=== PATIENT | male | born 1980 | race Caucasian/White ===

== ENCOUNTER 2016-10-25 02:46 | Inpatient (IN) | payer BC, OTHER ==
[~2016-10-25] VITALS: Ht 175.3 cm; Wt 81.0 kg
[2016-10-25] VITALS (16 sets, daily range): BP systolic 102–115; BP diastolic 65–75
[2016-10-25 03:40] LABS: WHITE BLOOD COUNT 3.4 x10^3/uL (3.4-10)
[2016-10-25 03:42] LABS: HEMOGLOBIN 5.9 g/dL (13.7-18.0)
[2016-10-25 03:43] LABS: HEMATOCRIT 17.9 % (39.2-51.8)
[2016-10-25 03:47] LABS: BLOOD UREA NITROGEN 9 mg/dL (7-18)
[2016-10-25 03:52] LABS: IS PT STATUS REG ER OR PRE ER? YES
[2016-10-25] MEDS ORDERED: OMNIPAQUE 350 MG/ML, 100ML BOTTLE ONE (04:24)
[2016-10-25] MEDS ORDERED: ONDANSETRON ODT 4 MG PO PRN (05:30)
[2016-10-25] MEDS ORDERED: ACETAMINOPHEN 325 MG TABLET PO PRN (05:30)
[2016-10-25] MEDS ORDERED: TEMAZEPAM 15 MG CAPSULE PO PRN (05:30)
[2016-10-25] MEDS ORDERED: ONDANSETRON 2MG/ML, 2ML IVPush PRN (05:30)
[2016-10-25 09:22] LABS: FERRITIN 4.3 ng/mL (26-388)
[2016-10-25] MEDS: FAMOTIDINE 20 MG/2 ML IVPush SCH ×2 (09:34→21:28)
[2016-10-25 10:23] LABS: HEMOGLOBIN 6.4 g/dL (13.7-18.0)
[2016-10-25 11:11] LABS: HEMATOCRIT 20.3 % (39.2-51.8); HEMOGLOBIN 6.8 g/dL (13.7-18.0)
[2016-10-25 17:46] LABS: HEMATOCRIT 27.4 % (39.2-51.8)
[2016-10-25] MEDS: HYDROcodone/APAP 5/325 TABLET PO PRN (20:22)
[2016-10-25 22:27] LABS: HEMATOCRIT 27.3 % (39.2-51.8); HEMOGLOBIN 9.1 g/dL (13.7-18.0)
[2016-10-26 01:21] VITALS: BP 116/74
[2016-10-26 05:35] LABS: HEMATOCRIT 26.5 % (39.2-51.8); HEMOGLOBIN 8.9 g/dL (13.7-18.0); WHITE BLOOD COUNT 4.4 x10^3/uL (3.4-10)
[2016-10-26 05:43] LABS: ASPARTATE AMINO TRANSFERASE 13 U/L (15-37); BLOOD UREA NITROGEN 7 mg/dL (7-18)
[2016-10-26 06:29] VITALS: BP 102/63
[2016-10-26] MEDS: FAMOTIDINE 20 MG/2 ML IVPush SCH ×2 (09:28→21:07)
[2016-10-26] MEDS: HYDROcodone/APAP 5/325 TABLET PO PRN ×2 (12:47→23:53)
[2016-10-26 14:33] VITALS: BP 107/70
[2016-10-26] MEDS ORDERED: GOLYTELY 4,000ML ORAL.SOL PO ONE (17:00)
[2016-10-26 20:36] VITALS: BP 117/72
[2016-10-27 01:03] VITALS: BP 115/74
[2016-10-27 05:11] LABS: HEMATOCRIT 27.4 % (39.2-51.8)
[2016-10-27 08:15] VITALS: BP 107/64
[2016-10-27] MEDS: FAMOTIDINE 20 MG/2 ML IVPush SCH (08:39)
[2016-10-27] MEDS ORDERED: MIDAZOLAM 1 MG/ML, 2ML ONE (08:43)
[2016-10-27] MEDS ORDERED: FENTANYL PF 100 MCG/2ML ONE (08:43)
[2016-10-27] MEDS ORDERED: ONDANSETRON 2MG/ML, 2ML ONE ×2 (08:45→09:53)
[2016-10-27] MEDS ORDERED: PROPOFOL 10 MG/ML, 20ML ONE (08:45)
[2016-10-27] MEDS ORDERED: HYDROmorphone 1 MG/ML, 1ML IV PRN (10:00)
[2016-10-27] MEDS ORDERED: HYDROcodone/APAP 7.5-325MG/15ML UDC PO PRN (10:00)
[2016-10-27] MEDS ORDERED: OXYcodone 5 MG/5 ML ORAL.SOL UDC PO PRN (10:00)
[2016-10-27] MEDS ORDERED: FENTANYL PF 100 MCG/2ML IV PRN (10:00)
[2016-10-27] MEDS ORDERED: PANT40TA3 PO (11:25)
[2016-10-27] MEDS ORDERED: PHEN1SUP77 PR (11:36)
[2016-10-27 15:38] VITALS: BP 104/58
== END 2016-10-27 16:49 | disposition home or self-care (01) | DRG 378 ==
LOC: ED 03:29 → EDIP 05:04 → 4NOR 06:00 → 4EST 10:16
PROVIDERS: ADMIT Internal Medicine; ATTEND Internal Medicine
PROC: 30233N1 Transfusion of Nonautologous Red Blood Cells into Peripheral Vein, Percutaneous Approach (ICD-10-PCS; principal; 2016-10-25)
PROC: 0DJD8ZZ Inspection of Lower Intestinal Tract, Via Natural or Artificial Opening Endoscopic (ICD-10-PCS; 2016-10-27)
PROC: 0DBB8ZX Excision of Ileum, Via Natural or Artificial Opening Endoscopic, Diagnostic (ICD-10-PCS; 2016-10-27)
PROC: 0DBE8ZX Excision of Large Intestine, Via Natural or Artificial Opening Endoscopic, Diagnostic (ICD-10-PCS; 2016-10-27)
DX: K92.2 Gastrointestinal hemorrhage, unspecified (principal); D62 Acute posthemorrhagic anemia; R13.10 Dysphagia, unspecified; G89.29 Other chronic pain; K20.0 Eosinophilic esophagitis; K52.9 Noninfective gastroenteritis and colitis, unspecified; K64.9 Unspecified hemorrhoids; Z80.0 Family history of malignant neoplasm of digestive organs
CPT/HCPCS: 36415; 71010; 74177; 80048; 80053; 82040; 82728; 83540; 83550; 84484; 85014; 85018; 85025; 85045; 85379; 86850; 86900; 86923; 88305; 93005; J2250; J2405; J2704; J3010; Q9967; P9016; S0028